=== PATIENT | male | born 1985 | race Caucasian/White ===

== ENCOUNTER 2017-04-08 14:31 | Emergency (ER) | payer OTHER ==
--- NOTE | 2017-04-08 14:39 | ED CARDIAC/CP/PALPITATIONS ---
History of Present Illness General Chief Complaint: General Adult Stated Complaint: SENT BY MD FOR EKG CHANGES, ELEVATED HR. Source: patient Exam Limitations: no limitations Vital Signs & Intake/Output Vital Signs & Intake/Output Vital Signs Date Time Temp Pulse Resp B/P B/P Pulse O2 O2 Flow FiO2 Mean Ox Delivery Rate 04/08 1823 98.2 80 16 148/80 98 Room Air Room Air 04/08 1554 98.8 90 18 140/76 99 Room Air 04/08 1450 98.2 108 18 141/75 98 Room Air ED Intake and Output 04/09 0000 04/08 1200 Intake Total 1000 Output Total Balance 1000 Intake, IV 1000 Allergies Coded Allergies: No Known Allergies (10/30/16) Reconcile Medications Aspirin (Lo-Dose Aspirin EC) 81 MG TABLET.DR 2 TAB PO ONCE HIGH HEART RATE ( Reported) Loratadine (Claritin) 10 MG TABLET 1 TAB PO PRN ALLERGIES (Reported) Hooper-3S/Dha/Epa/Fish Oil (Fish Oil 1,200 MG Softgel) (Unknown Strength) CAPSULE (Unknown Dose) PO QW SUPPLEMENT (Reported) Omeprazole 20 MG TABLET.DR 1 TAB PO PRN GI (Reported) Ranitidine HCl (Zantac 75) 75 MG TABLET 1 TAB PO PRN GI (Reported) Triage Nurses Notes Reviewed? yes Onset: Abrupt Duration: day(s): (few) Timing: recent history Activities at Onset: none Aspirin Today: 81 mg x 1 Associated Symptoms: palpitations, anxiety HPI: 31 year old male sent from clinic for evaluation of abnormal ekg. He states that he has noticed his heart rate has been high today. Reports diarrhea earlier in the day as well as some acid reflux symptoms. Denies any chest pain or shortness of breath. Denies any abdominal pain. He is worried he may be having a cardiac event. He states he has been exercising daily to help treat a slightly elevated blood pressure. He is not on any antihypertensives. No family history of CAD in young males. He denies any illicit substance use. He was admitted to [facility] in January and had a negative cardiac workup including negative stress test. Past History Travel History Traveled to [place] past 21 day No Medical History Any Pertinent Medical History? see below for history Neurological: NONE Cardiovascular: RBBB Gastrointestinal: GERD Psychiatric: anxiety Surgical History Surgical History: TREADMILL STRESS TEST JANUARY 2017 WNL Psychosocial History What is your primary language German Tobacco Use: Never used ETOH Use: denies use Illicit Drug Use: denies illicit drug use Family History Comment: GRANDFATHER CAD IN LATE 60'S Hx Contributory? No Review of Systems Review of Systems Constitutional: Denies: chills, fever. EENTM: Reports: no symptoms. Respiratory: Denies: cough, short of breath. Cardiovascular: Reports: palpitations. Denies: see HPI, peripheral edema, syncope. GI: Reports: diarrhea, nausea. Denies: abdominal pain. Genitourinary: Reports: no symptoms. Musculoskeletal: Denies: back pain. Skin: Reports: no symptoms. Neurological/Psychological: Reports: anxiety. Hematologic/Endocrine: Denies: bruising, bleeding, polyuria, polydipsia. Immunologic/Allergic: Denies: splenectomy. All Other Systems: Reviewed and Negative Physical Exam Physical Exam General Appearance: well developed/nourished, alert, awake, anxious, mild distress Head: atraumatic, normal appearance Eyes: Bilateral: normal appearance, PERRL, EOMI. Ears, Nose, Throat: normal pharynx, hearing grossly normal Neck: normal inspection, supple, full range of motion Respiratory: normal breath sounds, chest non-tender, no respiratory distress Cardiovascular: tachycardia Peripheral Pulses: 2+ radial (R), 2+ radial (L) Gastrointestinal: normal bowel sounds, soft, non-tender Extremities: normal inspection, normal range of motion, no edema Neurologic/Psych: no motor/sensory deficits, awake, alert, oriented x 3 Skin: intact, normal color, warm/dry Core Measures ACS in differential dx? Yes ASA ordered for poss ACS? No-ACS ruled out Severe Sepsis Present: No Septic Shock Present: No Progress Differential Diagnosis: AMI, myocarditis, pericarditis, pulmonary embolism, PUD/ GERD, dehydration, anxiety, FRANCISCO, THYROID DISORDER Plan of Care: Orders Procedure Date/time Status Regular Diet 04/09 B Active EKG 04/08 1730 Active Add-on Test (ER Only) 04/08 1727 Active Add-on Test (ER Only) 04/08 1717 Active URINALYSIS 04/08 1644 Complete TROPONIN LEVEL 04/08 1506 Complete COMPREHENSIVE METABOLIC PANEL 04/08 1506 Complete CREATINE PHOSPHOKINASE 04/08 1506 Complete THYROID STIMULATING HORMONE 04/08 1446 Complete FREE T4 04/08 1446 Complete Telemetry/Launderer Hand 04/08 1443 Active URINE DRUGS OF ABUSE 04/08 144 Complete PARTIAL THROMBOPLASTIN TIME 04/08 144 Complete PROTHROMBIN TIME 04/08 144 Complete CBC WITHOUT DIFFERENTIAL 04/08 1443 Complete EKG 04/08 1434 Active Laboratory Tests 04/08/17 1644: Urine Opiates Screen < 100.00, Methadone Screen < 40, Barbiturate Screen < 60, Ur Phencyclidine Scrn < 6.00, Amphetamines Screen < 100, U Benzodiazepines Scrn < 85, Urine Cocaine Screen < 50, Urine Cannabis Screen < 5.00, Urine Color YEL, Urine Clarity CLEAR, Urine pH 6.0, Ur Specific [place] <= 1.005, Urine Protein NEG, Urine Ketones NEG, Urine Nitrite NEG, Urine Bilirubin NEG, Urine Urobilinogen 0.2, Ur Leukocyte Esterase NEG, Ur Microscopic EXAM NOT REQUIRED, Urine Hemoglobin NEG, Urine Glucose NEG 04/08/17 1506: Anion Gap 14, Estimated GFR > 60, BUN/Creatinine Ratio 17.5, Glucose 120 H, Calcium 9.2, Total Bilirubin 1.1, AST 25, ALT 60, Alkaline Phosphatase 66, Creatine Kinase 88, Troponin I < 0.01, Total Protein 7.6, Albumin 4.7, Globulin 2.9, Albumin/Globulin Ratio 1.6, TSH 0.328, Free T4 1.36, PT 12.6 H, INR 1.20 H, APTT 29, CBC w Diff NO MAN DIFF REQ, RBC 5.29, MCV 89.5, MCH 30.6, RDW 12.6, MPV 8.6, Gran % 91.3 H, Lymphocytes % 6.7 L, Monocytes % 1.8, Eosinophils % 0.1, Basophils % 0.1, Absolute Granulocytes 9.2 H, Absolute Lymphocytes 0.7 L, Absolute Monocytes 0.2, Absolute Eosinophils 0, Absolute Basophils 0, PUBS MCHC 34.2 04/08/17 1443: Sodium Cancelled, Potassium Cancelled, Chloride Cancelled, Carbon Dioxide Cancelled, Anion Gap Cancelled, BUN Cancelled, Creatinine Cancelled, BUN/ Creatinine Ratio Cancelled, Glucose Cancelled, Calcium Cancelled, Total Bilirubin Cancelled, AST Cancelled, ALT Cancelled, Alkaline Phosphatase Cancelled, Troponin I Cancelled, Total Protein Cancelled, Albumin Cancelled, Globulin Cancelled, Albumin/Globulin Ratio Cancelled Initial ED EKG: RBBB, no ST T wave changes, SINUS TACHYCARDIA Repeat EKG: changed (NSR, RBBB) Rhythm Strip: sinus tachycardia Departure Departure Time of Disposition: 1809 Disposition: HOME OR SELF CARE Condition: Stable Clinical Impression Primary Impression: Tachycardia Secondary Impressions: RBBB Referrals: PATIENT HAS NO PRIMARY CARE DR EULALIO GÓMEZ,W NUNO Additional Instructions: Please follow up with Dr. Sauceda in the office regarding your symptoms. Drink plenty of fluids. Return to the ER for any changing or worsening symptoms. Departure Forms: Customer Survey General Discharge Information Critical Care Note Critical Care Note Critical Care Time: non-applicable
[2017-04-08 15:25] LABS: ABSOLUTE BASOPHIL COUNT 0 /CUMM (0.0-0.2); ABSOLUTE EOSINOPHIL COUNT 0 /CUMM (0.0-0.7); ABSOLUTE GRANULOCYTE CT 9.2 /CUMM (1.4-6.5); ABSOLUTE LYMPH COUNT 0.7 /CUMM (1.2-3.4); ABSOLUTE MONOCYTE COUNT 0.2 /CUMM (0.10-0.60); BASOPHIL % 0.1 % (0.0-2.0); EOSINOPHIL % 0.1 % (0-5); GRANULOCYTE % 91.3 % (42.2-75.2); HEMATOCRIT 47.4 % (42-52); MEAN CORPUSCULAR HGB 30.6 PG (27.0-31.0); MEAN CORPUSCULAR HGB CONC 34.2 G/DL (33.0-37.0); MEAN CORPUSCULAR VOLUME 89.5 FL (80.0-94.0); MEAN PLATELET VOLUME 8.6 FL (7.4-10.4); RBC DISTRIBUTION WIDTH 12.6 % (11.5-14.5); RED BLOOD CELL CT 5.29 /CUMM (4.70-6.10)
[2017-04-08] MEDS ORDERED: FISH OIL 1,2001 EAC2 PO (15:30)
[2017-04-08] MEDS ORDERED: ZANTAC 7575 M1 PO (15:30)
[2017-04-08] MEDS ORDERED: OMEPRAZOLE20 M3 PO (15:30)
[2017-04-08] MEDS ORDERED: CLARITIN10 M1 PO (15:31)
[2017-04-08] MEDS ORDERED: LO-DOSE ASPIRIN81 MG PO (15:31)
[2017-04-08 15:36] LABS: PT 12.6 SEC (9.4-12.5); PTT 29 SEC (25-37)
[2017-04-08 15:56] LABS: WHITE BLOOD CELL COUNT 10.1 /CUMM (4.8-10.8)
[2017-04-08 18:23] VITALS: BP 148/80
== END 2017-04-08 18:24 ==
LOC: ERH 14:31
PROVIDERS: Emergency Medicine
DX: R00.0 Tachycardia, unspecified (principal); I45.10 Unspecified right bundle-branch block
CPT/HCPCS: 80307; 81003; 93005; 93010